=== PATIENT | male | born 1995 | race Hispanic/Latino ===

== ENCOUNTER 2023-06-28 20:16 | Emergency (ER) | payer SELFPAY ==
[2023-06-28 21:31] LABS: Bacteria/HPF None Seen HPF (None Seen); Bilirubin Negative (Negative); Blood, Urine Negative (Negative); CAUTI Indications for Culture Pelvic or flank pain; Clarity Clear (Clear); Glucose, Urine (Dipstick) Normal (Negative); Ketone, Urine Trace mg/dL (Negative); Leukocyte Negative Leu/uL (Negative); Nitrite Negative (Negative); Protein, Urine (Dipstick) Negative (Neg-Trace); RBC/HPF 0-3 HPF (0-3); Specific Gravity, Urine 1.024 (1.002-1.036); Squamous Epithelial None Seen HPF (0-3); Urobilinogen Normal mg/dL (Less than 2); WBC/HPF 0-3 HPF (0-3); pH, Urine 6.5 (5.0-9.0)
[2023-06-28 21:34] LABS: Urine Culture Reflex No No
[2023-06-28] MEDS ORDERED: cefTRIAXone (ROCEPHIN) 500 MG VIAL ONE (22:33)
[2023-06-28] MEDS ORDERED: Lidocaine 1% MPF 2 ML VIAL ONE (22:33)
[2023-06-29 04:07] LABS: Chlam.trachomatis by PCR,Urine Not Detected (NotDetected); GC N.gonorrhoeae PCR,UrineVOID Not Detected (NotDetected)
== END 2023-06-28 22:45 | disposition home or self-care (01) ==
LOC: ERS 20:16
DX: R30.0 Dysuria (principal)
CPT/HCPCS: 76870; 81001; 87491; 87591; 96372; J0696